=== PATIENT | female | born 1965 | race Caucasian/White ===

== ENCOUNTER 2018-10-27 23:23 | Emergency (ER) | payer MEDICAID ==
[2018-10-27 23:41] VITALS: BP 146/86; PULSE 74; RESP 20; TEMP 98.3; O2SAT 98
[2018-10-28] MEDS ORDERED: Naproxen 550 mg Tab PO STA (00:13)
[2018-10-28] MEDS ORDERED: Naproxen 550 mg Tab PO ONE (00:21)
--- NOTE | 2018-10-28 00:38 | C.PDOC ---
History Of Present Illness 53 year old female presents to the ED c/o right shoulder and elbow pain for the past 2 weeks. Patient states she has chronic pain to both areas, saw her PMD who prescribed her Voltaren gel. Patient states gel no o longer helping with pain, patient reports over the past week pain has worsened. Patient states she was unable to sleep which prompted the visit to the ED. Upon arrival patient reports right shoulder pain has improved. Patient denies fever, chills, nausea, vomit, injury, fall, trauma, weakness, numbness. Time Seen by Provider: 10/27/18 23:56 Chief Complaint (Nursing): Upper Extremity Problem/Injury History Per: Patient History/Exam Limitations: no limitations Onset/Duration Of Symptoms: Days Current Symptoms Are (Timing): Still Present Quality: "Pain" Exacerbating Factor(s): Movement Recent travel outside of the [place]: No Additional History Per: Patient Past Medical History Reviewed: Historical Data, Nursing Documentation, Vital Signs Vital Signs: Last Vital Signs Temp 98.3 F 10/27/18 23:37 Pulse 74 10/27/18 23:37 Resp 20 10/27/18 23:37 BP 146/86 10/27/18 23:37 Pulse Ox 98 10/27/18 23:37 - Medical History PMH: No Chronic Diseases Surgical History: No Surg Hx Family History: States: Unknown Family Hx - Social History Hx Alcohol Use: No Hx Substance Use: No - Immunization History Hx Tetanus Toxoid Vaccination: No Hx Influenza Vaccination: No Hx Pneumococcal Vaccination: No Review Of Systems Constitutional: Negative for: Fever, Chills Cardiovascular: Negative for: Chest Pain, Palpitations Respiratory: Negative for: Cough, Shortness of Breath Gastrointestinal: Negative for: Nausea, Vomiting, Abdominal Pain Musculoskeletal: Positive for: Shoulder Pain, Arm Pain Skin: Negative for: Rash Neurological: Negative for: Weakness, Numbness Physical Exam - Physical Exam Appears: Non-toxic, No Acute Distress Skin: Normal Color, Warm, Dry Head: Atraumatic, Normacephalic Eye(s): bilateral: Normal Inspection Neck: Normal ROM, Supple Extremity: Normal ROM, Tenderness (minimal right elbow), Capillary Refill (< 2 seconds), No Swelling, No Other (effusion of right elbow) Pulses: Left Radial: Normal, Right Radial: Normal Neurological/Psych: Oriented x3, Normal Speech, Normal Cognition, Normal Motor, Normal Sensation Gait: Steady ED Course And Treatment O2 Sat by Pulse Oximetry: 98 (ON RA) Pulse Ox Interpretation: Normal Progress Note: Plan: - Naproxen 550 mg PO. On reassessment, patient is resting comfortably, and is in no acute distress. Patient was instructed to follow up with physician/clinic in 1-2 days for further evaluation. Disposition Counseled Patient/Family Regarding: Diagnosis - Disposition Disposition: HOME/ ROUTINE Disposition Time: 00:36 Condition: STABLE Additional Instructions: Please follow up with PMD Take medications as directed Return to ER if worse Prescriptions: Naproxen [Naprosyn] 1 tab PO BID PRN #20 tab PRN Reason: Pain Instructions: Joint Pain Forms: [email or web address] ([place]uan) - Clinical Impression Clinical Impression: Elbow pain, right - PA / [employer] / Resident Statement MD/DO has reviewed & agrees with the documentation as recorded. - Scribe Statement The provider has reviewed the documentation as recorded by the Scribe Rashard Logan All medical record entries made by the Scribe were at my direction and personally dictated by me. I have reviewed the chart and agree that the record accurately reflects my personal performance of the history, physical exam, medical decision making, and the department course for this patient. I have also personally directed, reviewed, and agree with the discharge instructions and disposition.
== END 2018-10-28 00:41 | disposition home or self-care (01) ==
LOC: C.ER 23:23
DX: M25.521 Pain in right elbow (principal)